=== PATIENT | female | born 1960 | race Caucasian/White ===

== ENCOUNTER 2019-09-27 15:01 | Outpatient (CLI) | payer BC, SELFPAY ==
--- NOTE | 2019-09-27 | XR_ITS ---
WS: [id number] CHEST 2 VIEWS HISTORY: BRONCHITIS COMPARISON: None available. Lungs: Clear with no abnormality. No pleural effusion or pneumothorax. Cardiac size: Normal. Mediastinum/Aorta: Normal mediastinum. Bones: Normal. XR/XR chest 2V* [id number] IMPRESSION: Normal chest.
== END 2019-09-27 15:02 | disposition home or self-care (01) ==
PROVIDERS: Family Provider Family Medicine; Visit Provider Nurse Practitioner
DX: Z01.89 Encounter for other specified special examinations (principal)

== ENCOUNTER 2021-02-18 10:27 | Outpatient (CLI) | payer OTHER, SELFPAY ==
[2021-02-18 10:53] VITALS: BP 122/72; PULSE 91; RESP 15; TEMP 36.9; O2SAT 96
[2021-02-18 11:37] VITALS: BP 102/66; PULSE 73; RESP 16; TEMP 36.7; O2SAT 96
[2021-02-18 12:37] VITALS: BP 112/72; PULSE 70; RESP 16; TEMP 36.6
== END 2021-02-18 14:11 | disposition home or self-care (01) ==
LOC: OPS 10:28
PROVIDERS: PCP Family Medicine; Visit Provider Nurse Practitioner Family
DX: U07.1 COVID-19 (principal)
CPT/HCPCS: 96365

== ENCOUNTER 2021-12-26 19:23 | Emergency (ER) | payer OTHER, SELFPAY ==
[2021-12-26 19:30] VITALS: BP 148/78; PULSE 96; O2SAT 98
[2021-12-26 19:31] VITALS: BP 164/85; PULSE 96; RESP 22; TEMP 37.4; O2SAT 97; BMI 36.6
--- NOTE | 2021-12-26 19:51 | W.ED.GENADLT ---
HPI - General Adult General: Chief complaint: General Medical Stated complaint: High BP Time Seen by Provider: 12/26/21 19:24 Source: patient Mode of arrival: ambulatory Limitations: no limitations History of Present Illness: This patient with known hypertension comes to the emergency department because she states she was concerned her blood pressure was elevated this evening. She states she has had some associated malaise body aches low back pain as well as dysuria and frequency over the last day or so as well. She is here primarily because she was concerned about her blood pressure being elevated. She has been faithful to her medications and took them this evening. She denies difficulty breathing, fevers that she is aware etc. has had some right chest soreness and has been pulling and lifting on some objects at [employer] recently. She had a prior cholecystectomy but no other abdominal surgeries. No nausea vomiting or diarrhea. No known exposure to infectious disease. Associated symptoms: Reports malaise; Deny chest pain, dyspnea, nausea, rash, palpitations or vomiting Review of Systems Const: Reports: chills, body aches and malaise; Denies: fever(s) or change in appetite Eyes: Denies: change in vision or blurry vision ENMT: Denies: throat pain, odynophagia or nasal congestion Card: Denies: chest pain, palpitations, irregular heart rhythm or edema Resp: Denies: dyspnea, productive cough or non-productive cough GI: Denies: nausea, vomiting or diarrhea : Reports: flank pain, urinary frequency and urinary urgency; Denies: difficulty voiding, dysuria or hematuria Musc: Reports: back pain; Denies: neck pain, extremity pain or extremity swelling Skin/Breast: Denies: rash Neuro: Denies: numbness in extremities or weakness in extremities Psych: Denies: anxiety or depression Reginaldo/Lymph: Denies: easy bruising or easy bleeding PFS ED PFSH: Medical History Allergies HTN (hypertension) Social History Smoking and tobacco status: current every day smoker History of recent travel: No Physical Exam Narrative: EXAM NARRATIVE: Vital signs are noted at intake. Blood pressure was in the 140/70 range. She was alert made good eye contact and speech is goal-directed. Const: COMMON NORMALS: no acute distress, average body habitus and patient oriented x3 GENERAL APPEARANCE: cooperative HENMT: COMMON NORMALS: normocephalic, Normal nasal mucous membranes and turbinates present, moist oral mucous membranes and oropharynx normal HEAD & SCALP: normocephalic NOSE: Normal nasal mucous membranes and turbinates present Eye: COMMON NORMALS: Equal, round and reactive pupils present and EOMs intact bilaterally PUPIL: Yes Equal, round and reactive pupils present Neck/C-Spine: COMMON NORMALS: full ROM, no lymphadenopathy, no JVD and No carotid bruits Chest: COMMONS NORMALS: normal inspection of the chest OTHER: Chest wall tenderness in the right side over the lateral margin of the pectoralis muscle. No crepitance, no ecchymosis no rash. Resp: COMMON NORMALS: normal respiratory effort, No use of accessory muscles and clear to auscultation bilaterally AUSCULTATION: clear to auscultation bilaterally Cardio: COMMON NORMALS: no JVD, regular rate, regular rhythm, No murmurs present (Cardio) and Peripheral pulses 2+ throughout RATE: regular rate RHYTHM: regular rhythm PERIPHERAL PULSES: Peripheral pulses 2+ throughout GI: COMMON NORMALS: Soft to palpation, non-tender and no masses PALPATION: Yes Soft to palpation : COMMON NORMALS: Yes no CVA tenderness BLADDER/KIDNEY EXAM: Yes no CVA tenderness Back/Pelvis: COMMON NORMALS: no CVA tenderness, thoracic and lumbar spine normal to inspection, no thoracic nor lumbar tenderness and thoraco-lumbar ROM normal Extremity: COMMON NORMALS: normal to inspection, full ROM, capillary refill normal, no calf tenderness and no pedal edema Neuro: COMMON NORMALS: patient oriented x3, moves all extremities, no focal motor deficits and no sensory deficits noted CRANIAL NERVES: Yes CN normal except as noted SPEECH: speech normal Course Reevaluation(s): Reevaluation #1: Patient remained stable. Her history and symptoms and urinalysis support likely urinary tract infection. This is probably a contributor to her malaise as well as her fluctuations in blood pressure. Certainly no other evidence of other emergency medical condition at this time. Discussed plan for treatment and for her to monitor her blood pressure at home with a blood pressure cuff and follow-up with her primary care doctor. She acknowledged her discussion. Time: 21:25 Vital Signs: Vital signs: Vital Signs Temperature 99.4 F 12/26/21 19:31 Pulse Rate 80 12/26/21 20:30 Respiratory Rate 22 H 12/26/21 19:31 Blood Pressure 175/70 12/26/21 20:30 Pulse Oximetry 96 12/26/21 20:30 MDM - General Adult Medical Decision Making Patient with concerns about elevated blood pressure this evening. She also had a various other somatic complaints that prompted her to come to the emergency department to include malaise, frequency urgency and dysuria. No fevers or chills nausea vomiting or diarrhea. Her evaluation today reveals blood pressures to be reasonably controlled but she did have abnormal urinalysis that suggested a urinary tract infection. She has no signs to suggest any abdominal findings and she certainly has nodes findings to suggest sepsis etc. at this time. We will treat her urinary tract infection and have her monitor her blood pressure at home. Stable for discharge. Medical Records I reviewed the patient's medical records. Lab Data I reviewed the patient's lab results. : 12/26/21 20:00 12/26/21 20:00 Laboratory Results WBC 6.0 10^3/uL (4.0-10.0) 12/26/21 20:00 RBC 4.59 10^6/uL (4.1-5.3) 12/26/21 20:00 Hgb 14.2 g/dL (11.5-15.3) 12/26/21 20:00 Hct 40.6 % (37.0-47.0) 12/26/21 20:00 MCV 88.5 fl (81-99) 12/26/21 20:00 MCH 30.9 pg (28.0-34.0) 12/26/21 20:00 MCHC 35.0 g/dL (30.0-36.0) 12/26/21 20:00 RDW 13.7 % (12.1-15.1) 12/26/21 20:00 Plt Count 265 10^3/cmm (130-400) 12/26/21 20:00 MPV 9.1 fL (7.4-10.4) 12/26/21 20:00 Neut % (Auto) 71.0 % 12/26/21 20:00 Lymph % (Auto) 20.1 % 12/26/21 20:00 [place] % (Auto) 7.5 % 06/11/22 20:00 Eos % (Auto) 0.7 % 12/26/21 20:00 Baso % (Auto) 0.5 % 12/26/21 20:00 Neut # (Auto) 4.28 10^3/uL (1.8-7.7) 12/26/21 20:00 Lymph # (Auto) 1.2 10^3/uL (0.8-4.8) 12/26/21 20:00 [place] # (Auto) 0.5 10^3/uL (0.2-0.9) 12/26/21 20:00 Eos # (Auto) 0.0 10^3/uL (0.0-0.8) 12/26/21 20:00 Baso # (Auto) 0.0 10^3/uL (0.0-0.1) 12/26/21 20:00 Nucleated RBC % (auto) 0 % 12/26/21 20:00 Nucleated RBCs # 0.0 /100WBC 12/26/21 20:00 Sodium 135 mmol/L (136-145) L 12/26/21 20:00 Potassium 3.9 mmol/L (3.5-5.1) 12/26/21 20:00 Chloride 99 mmol/L (98-107) 12/26/21 20:00 Carbon Dioxide 26 mmol/L (22-29) 12/26/21 20:00 Anion Gap 13.9 (5-19) 12/26/21 20:00 BUN 11 mg/dL (8-23) 12/26/21 20:00 Creatinine 0.6 mg/dL (0.5-0.9) 12/26/21 20:00 GFR Calculation 101.0 mL/min (90-130) 12/26/21 20:00 Glucose 108 mg/dL (65-115) 12/26/21 20:00 Calculated Osmolality 280 mOsm/kg (285-295) L 12/26/21 20:00 Calcium 9.1 mg/dL (8.5-10.5) 12/26/21 20:00 Urine Color Colorless (Yellow) 12/26/21 19:50 Urine Appearance Clear (CLEAR) 12/26/21 19:50 Urine pH 6.5 (5-7) 12/26/21 19:50 Ur Specific [place] 1.010 (1.005-1.030) 12/26/21 19:50 Urine Protein Neg (Negative) 12/26/21 19:50 Urine Glucose (UA) Norm (Normal) 12/26/21 19:50 Urine Ketones Negative (Negative) 12/26/21 19:50 Urine Blood 2+ (Negative) H 12/26/21 19:50 Urine Nitrate Negative (Negative) 12/26/21 19:50 Urine Bilirubin Neg (Negative) 12/26/21 19:50 Urine Urobilinogen Norm mg/dL (Negative) 12/26/21 19:50 Ur Leukocyte Esterase 2+ (Negative) H 12/26/21 19:50 Urine RBC 0-4 /hpf (0-2) H 12/26/21 19:50 Urine WBC 15-25 /hpf (0-5) H 12/26/21 19:50 Ur Squamous Epith Cells 15-25 /hpf (0-5) H 12/26/21 19:50 Amorphous Sediment Not Reportable 12/26/21 19:50 Urine Bacteria Trace /hpf (NONE) 12/26/21 19:50 Discharge Plan Discharge Patient Disposition: Home Clinical Impression: Hypertension, Urinary tract infection Condition: Stable Prescriptions: New Macrobid 100 mg capsule 100 mg PO BID 5 Days Qty: 10 0RF Rx Instructions: must administer with a meal/food No Action hydralazine 50 mg tablet 50 mg PO BID 0RF amlodipine 5 mg tablet 5 mg PO BID 0RF irbesartan 300 mg tablet 300 mg PO DAILY 0RF montelukast 10 mg tablet 10 mg PO DAILY 0RF cyclobenzaprine 10 mg tablet 10 mg PO TID 0RF levocetirizine [Allergy Relief (levocetirizin)] 5 mg tablet 5 mg PO DAILY 0RF Children's Flonase Sensimist 27.5 mcg/actuation spray,suspension 1 spray intranasal DAILY 0RF Rx Instructions: into each nostril latanoprost 0.005 % drops 1 drp ophthalmic (eye) DAILY 0RF triamcinolone acetonide 0.1 % ointment 1 applic topical BID Qty: 80 1RF Discharge Orders: Discharge ED (Routine); Ordered 12/26/21 Ordered By: Juanito Lovett Referrals: Johnathon Warren MD [Primary Care Provider] - 2 weeks (bp follow up) Discharge Diet: Low Salt Discharge Activity: Resume usual activity Activity Restrictions/Additional Instructions: Take the antibiotics as prescribed. Follow your blood pressure at home with your blood pressure cuff monitoring it after you have been sitting for 10 to 15 minutes once or twice daily. Record those numbers for your doctor. See your doctor in approximately 2 weeks for review of your blood pressure readings. If you develop any new or worsening symptoms return to this or the nearest emergency department. Coding Level of Care Code ED Repair Electric Motor Assembler for Rosario Fwkristi Exam Comprehensive
[2021-12-26 20:08] LABS: Basophils % 0.5 %; Eosinophils % 0.7 %; Hematocrit 40.6 % (37.0-47.0); Hemoglobin 14.2 g/dL (11.5-15.3); Lymphocytes # 1.2 10^3/uL (0.8-4.8); Lymphocytes % 20.1 %; Mean Corpuscular Hemoglobin 30.9 pg (28.0-34.0); Mean Corpuscular Volume 88.5 fl (81-99); Mean Platelet Volume 9.1 fL (7.4-10.4); Monocytes # 0.5 10^3/uL (0.2-0.9); Monocytes % 7.5 %; Neutrophils # 4.28 10^3/uL (1.8-7.7); Nucleated Red Blood Cells % 0 %; Platelet Count 265 10^3/cmm (130-400); Red Blood Count 4.59 10^6/uL (4.1-5.3); Red Cell Distribution Width 13.7 % (12.1-15.1)
[2021-12-26 20:21] LABS: Add Urine Microscopic? YES; Bilirubin Urine Neg (Negative); Blood Urine 2+ (Negative); Glucose Urine UA Norm (Normal); Ketones Urine Negative (Negative); Leukocyte Esterase Urine 2+ (Negative); Nitrate Urine Negative (Negative); Protein Urine Neg (Negative); Urine Appearance Clear (CLEAR); Urine Color Colorless (Yellow); Urobilinogen Urine Norm (Negative); pH Urine 6.5 (5-7)
[2021-12-26 20:23] LABS: Add Urine Culture? No; Bacteria Urine TRACE /hpf; RBC Urine 0-4 /hpf (0-2); Squamous Epithelial Cell Urine 15-25 /hpf (0-5); WBC Urine 15-25 /hpf (0-5)
[2021-12-26 20:28] LABS: Blood Urea Nitrogen 11 mg/dL (8-23); Calcium 9.1 mg/dL (8.5-10.5); Carbon Dioxide 26 mmol/L (22-29); Chloride 99 mmol/L (98-107); Glucose 108 mg/dL (65-115); Osmolality Calculated 280 mOsm/kg (285-295); Sodium 135 mmol/L (136-145)
[2021-12-26 20:30] VITALS: BP 175/70; PULSE 80; O2SAT 96
[2021-12-26 20:31] LABS: Anion Gap 13.9 (5-19); Potassium 3.9 mmol/L (3.5-5.1)
[2021-12-26] MEDS: nitrofurantoin SR (BID) 100 mg Capsule PO (21:30)
[2021-12-26 21:41] VITALS: BP 152/71; PULSE 80; RESP 20; TEMP 37.2; O2SAT 95
== END 2021-12-26 21:40 | disposition home or self-care (01) ==
PROVIDERS: Emergency Provider Emergency Medicine; PCP Family Medicine
DX: N39.0 Urinary tract infection, site not specified (principal); I10 Essential (primary) hypertension
CPT/HCPCS: 80048; 81001; 85025; 99283

== ENCOUNTER 2023-04-22 09:26 | Emergency (ER) | payer OTHER, SELFPAY ==
[2023-04-22 09:58] VITALS: BP 137/63; PULSE 81; RESP 16; TEMP 36.7; O2SAT 96; BMI 29.2
--- NOTE | 2023-04-22 09:58 | CT_ITS ---
WS: [id number] CT ABDOMEN PELVIS TECHNIQUE: Contrast-enhanced CT of the abdomen and pelvis with coronal and sagittal reformatted image s. CLINICAL INFORMATION: abd pain COMPARISON: None. DLP: 584.[address] scans at [facility] use at least one of these dose optimization techniques: automated e xposure control; mA and/or kV adjustment per patient size (includes targeted exams where dose is matc hed to clinical indication); or iterative reconstruction. FINDINGS: Diffuse innumerable liver metastasis throughout both hepatic lobes. Hepatomegaly. Portal vein appears patent. Large low-attenuation pancreatic tail mass measuring approximately 4.8 x 3.2 cm. This involv es the tail extending to the mid body of the pancreas. Celiac and SMA appear patent. Splenic vein is narrowed the level of the pancreatic mass and poorly visualized likely thrombosed. Trace RIGHT pleural fluid with slight atelectasis in the lung bases. Numerous small opacities in the lung bases likely metastatic disease. Mild interstitial thickening in the lung bases. Normal GE junction. Mild intrahepatic biliary ductal dilatation. Adrenal glands appear normal. Normal renal parenchymal enhancement. RIGHT renal cyst. 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 Small amount of free fl uid in the pelvis. Normal sigmoid colon. Mild sigmoid constipation. Mild transverse colon constipatio n. Normal appendix in the RIGHT lower quadrant. IMPRESSION: 1. Low-attenuation peripheral enhancing pancreatic tail mass measuring 4.8 x 3.2 cm compatible with carcinoma, likely adenocarcinoma.. 2. Diffuse innumerable liver metastasis in both hepatic lobes with hepatomegaly and mild intrahepati c bili ductal dilatation. 3. Numerous suspected subcentimeter metastasis in the lung bases. 4. Trace pleural fluid with interstitial thickening in the lung bases. 5. Small amount of free fluid in the pelvis. 6. Mild sigmoid colon and transverse colon constipation. Notified JOY Brush at 04/22/2023 11:36 AM.
[2023-04-22 10:20] VITALS: RESP 16
[2023-04-22] MEDS: metoclopramide 5 mg/mL SDV 2 mL 10 MG IVP (10:20)
[2023-04-22] MEDS: morphine 4 mg/mL SDV 1 mL IVP (10:20)
[2023-04-22] MEDS: sodium chloride 0.9% 1,000 ML 999 ML IV (10:21)
--- NOTE | 2023-04-22 10:25 | W.ED.ABDPA2 ---
HPI - Abdominal Pain General: Chief Complaint: Abdominal Pain Stated Complaint: abd pain Time Seen by Provider: 04/22/23 09:45 Source: patient and family Mode of arrival: ambulatory Limitations: no limitations History of Present Illness: Patient presents to the emergency department today with multiple complaints ranging from abdominal pain, nausea vomiting, acute on chronic issues, recent diagnosis of RA, etc. Patient reports abdominal pain since December but indicates they have become a lot worse. She states she saw her truck driver heavy a few days ago and had lab work done. She states she was notified that they were all out of whack . She indicated they had discussed sending her to rack production worker because her blood levels were so off . Patient's chart review shows that she started methotrexate about a month ago for suspected RA. She also states she was ordered an outpatient CT scan for her abdominal pain but is not able to get it done until the and states she cannot wait that long due to her pain. Patient states her pain is so bad she is not sleeping. She is also reporting decreased oral intake due to her discomfort. Patient deals with chronic constipation and had a bowel movement yesterday. No change in bowel habits per her report. Review of Systems General: Reports: 10 or more systems reviewed and unremarkable except in HPI and below PFSH ED PFSH: Medical History (Updated 04/22/23 @ 11:54 by JOY Brush) Allergies Diabetes Diverticulitis Essential hypertension High risk medication use HTN (hypertension) Immunization counseling Inflammatory arthritis Rheumatoid arthritis Surgical History (Updated 03/16/23 @ 12:10 by Gurpreet Beltre MD) History of bilateral knee replacement History of cholecystectomy History of foot surgery History of shoulder surgery Family History (Updated 03/16/23 @ 11:11 by Jessie Jeffers LPN) Other Cancer Diabetes Family history of premature coronary artery disease Hypertension Stroke Denies family history of Chronic kidney disease (CKD) Lung disease Social History Smoking and tobacco status: current every day smoker Physical Exam Const: COMMON NORMALS: patient oriented x3 and alert OTHER: Patient is obviously uncomfortable in the bed with difficulty finding positioning. She is social and answers her own history. HENMT: COMMON NORMALS: normocephalic, atraumatic, hearing grossly normal bilaterally and moist oral mucous membranes HEAD & SCALP: normocephalic and atraumatic Eye: COMMON NORMALS: Equal, round and reactive pupils present and EOMs intact bilaterally PUPIL: Yes Equal, round and reactive pupils present OTHER: Patient with bilateral scleral icterus Neck/C-Spine: COMMON NORMALS: full ROM and no JVD Lymph: LYMPHATIC: no lymphadenopathy noted Resp: COMMON NORMALS: normal respiratory effort, No retractions, No use of accessory muscles and clear to auscultation bilaterally AUSCULTATION: clear to auscultation bilaterally Cardio: COMMON NORMALS: no JVD, regular rate and regular rhythm RATE: regular rate RHYTHM: regular rhythm GI: OTHER: Profuse tenderness in the abdomen. Patient actually grabs my arm to pull me away during upper abdominal palpation. Normoactive bowel sounds. : COMMON NORMALS: Yes no CVA tenderness BLADDER/KIDNEY EXAM: Yes no CVA tenderness Back/Pelvis: COMMON NORMALS: no CVA tenderness, no thoracic nor lumbar tenderness and thoraco-lumbar ROM normal Extremity: COMMON NORMALS: normal to inspection, full ROM and capillary refill normal Neuro: COMMON NORMALS: patient oriented x3 SENSORIUM/ORIENTATION: Yes alert Psych: COMMON NORMALS: mental status grossly normal, Normal thought process present, cooperative, normal affect and activity/motor behavior normal THOUGHT PROCESS: Normal thought process present Skin: COMMON NORMALS: no rashes or lesions noted and no wounds GENERAL SKIN EXAM: no rashes or lesions noted Course Vital Signs: Vital signs: Vital Signs Temperature 98.0 F 04/22/23 09:58 Pulse Rate 81 04/22/23 09:58 Respiratory Rate 16 04/22/23 10:20 Blood Pressure 137/63 04/22/23 09:58 Pulse Oximetry 96 04/22/23 09:58 Oxygen Delivery Me thod Nasal Cannula 04/22/23 09:58 MDM - Abdominal Pain Medical Decision Making Patient does have slightly elevated white blood cell count and minimally decreased red blood cell count. MCV is 99. Patient's GFR and creatinine revealed no signs of an ADAN but total bilirubin was 7.8. AST and ALT slightly elevated with ALT at 122. Alk phos significantly elevated over 1000. UA indicated 3+ bilirubin and 4+ urobiligen. I was notified by Dr. Gtz with radiology that patient has findings of a 5 cm pancreatic tail mass with diffuse liver metastases too numerous to count. He also notes subcentimeter bilateral lower lung metastases on CT. Discussed case with Dr. Ricketts at this time. He recommended a fabian conversation with the patient regarding these findings and pushing forward a follow-up with oncology. He also was willing to write for prescription for oxycodone and Ativan in addition to promethazine for the patient. He recommended offering referral to hospice as well. I did discuss the situation with the patient. Discussed her lab work as well as associated CT reading. Explained that this condition is quite progressed at this time and while we are referring her on to all oncology, she wanted to know honestly the expected outcome. Explained that typically this progressed type of cancer does not provide much more than several months of life expectancy. Patient was appropriately tearful but still asked good questions and seemed to be processing appropriately. responded similarly. I did call the rheumatology office and left a message with the nurse regarding the patient's evaluation here in the ER as they were the one who referred her on to be further evaluated. Referral to hematology oncology as well as hospice was initiated on the patient's behalf today. Brief informational handout regarding pancreatic cancers provided at discharge for patient reference. Differential Diagnosis Likely abdominal pain; Unlikely acute appendicitis, calculus of kidney, constipation, diverticulitis, gastroenteritis, pancreatitis or small bowel obstruction Lab Data 04/22/23 10:16 04/22/23 10:16 Labs/Radiology: Laboratory Results WBC 15.03 10^3/uL (3.29-11.43) H 04/22/23 10:16 RBC 3.33 10^6/uL (3.85-5.65) L 04/22/23 10:16 Hgb 10.80 g/dL (11.27-16.99) L 04/22/23 10:16 Hct 33.0 % (36-47) L 04/22/23 10:16 MCV 99.1 fl (85-98) H 04/22/23 10:16 MCH 32.4 pg (27-33) 04/22/23 10:16 MCHC 32.7 g/dL (30-55) 04/22/23 10:16 RDW 18.1 % (12.1-15.1) H 04/22/23 10:16 Plt Count 277 10^3/cmm (157-399) 04/22/23 10:16 MPV 9.6 fL (7.4-10.4) 04/22/23 10:16 Neut % (Auto) 78.7 % 04/22/23 10:16 Lymph % (Auto) 11.1 % 04/22/23 10:16 [place] % (Auto) 6.4 % 04/22/23 10:16 Eos % (Auto) 2.2 % 04/22/23 10:16 Baso % (Auto) 0.7 % 04/22/23 10:16 Neut # (Auto) 11.82 10^3/uL (1.8-7.7) H 04/22/23 10:16 Lymph # (Auto) 1.7 10^3/uL (0.8-4.8) 04/22/23 10:16 [place] # (Auto) 1.0 10^3/uL (0.2-0.9) H 04/22/23 10:16 Eos # (Auto) 0.3 10^3/uL (0.0-0.8) 04/22/23 10:16 Baso # (Auto) 0.1 10^3/uL (0.0-0.1) 04/22/23 10:16 Nucleated RBC % (auto) 0 % 04/22/23 10:16 Nucleated RBCs # 0.0 /100WBC 04/22/23 10:16 PT 13.60 SECONDS (12.1-14.9) 04/22/23 10:16 INR 1.01 (0.8-1.2) 04/22/23 10:16 Sodium 129 mmol/L (136-145) L 04/22/23 10:16 Potassium 3.4 mmol/L (3.5-5.1) L 04/22/23 10:16 Chloride 93 mmol/L (98-107) L 04/22/23 10:16 Carbon Dioxide 23 mmol/L (22-29) 04/22/23 10:16 Anion Gap 16.4 (5-19) 04/22/23 10:16 BUN 8 mg/dL (8-23) 04/22/23 10:16 Creatinine 0.2 mg/dL (0.5-0.9) L 04/22/23 10:16 GFR Calculation 357.6 mL/min (90-130) H 04/22/23 10:16 Glucose 157 mg/dL (65-115) H 04/22/23 10:16 Calculated Osmolality 270 mOsm/kg (285-295) L 04/22/23 10:16 Calcium 8.8 mg/dL (8.5-10.5) 04/22/23 10:16 Total Bilirubin 7.8 mg/dL (0.15-1.2) H* 04/22/23 10:16 AST 138 U/L (0-32) H 04/22/23 10:16 ALT 122 U/L (0-33) H 04/22/23 10:16 Alkaline Phosphatase 1109 U/L (35-105) H* 04/22/23 10:16 Total Protein 6.1 g/dL (6.6-8.7) L 04/22/23 10:16 Albumin 3.0 g/dL (3.5-5.2) L 04/22/23 10:16 Globulin 3.1 g/dL (1.3-4.6) 04/22/23 10:16 Lipase 18 U/L (13-60) 04/22/23 10:16 Urine Color Dark yellow (Yellow) 04/22/23 10:55 Urine Appearance Hazy (CLEAR) A 04/22/23 10:55 Urine pH 6.5 (5-7) 04/22/23 10:55 Ur Specific [place] 1.010 (1.005-1.030) 04/22/23 10:55 Urine Protein 2+ (Negative) H 04/22/23 10:55 Urine Glucose (UA) Norm (Normal) 04/22/23 10:55 Urine Ketones 1+ (Negative) H 04/22/23 10:55 Urine Blood 2+ (Negative) H 04/22/23 10:55 Urine Nitrate Negative (Negative) 04/22/23 10:55 Urine Bilirubin 3+ (Negative) H 04/22/23 10:55 Urine Urobilinogen 4+ mg/dL (Negative) H 04/22/23 10:55 Ur Leukocyte Esterase 1+ (Negative) H 04/22/23 10:55 Urine RBC 0-4 /hpf (0-2) H 04/22/23 10:55 Urine WBC 0-4 /hpf (0-5) H 04/22/23 10:55 Ur Squamous Epith Cells 5-10 /hpf (0-5) H 04/22/23 10:55 Amorphous Sediment Not Reportable 04/22/23 10:55 Urine Bacteria Trace /hpf (NONE) 04/22/23 10:55 Hepatitis A IgM Ab Non-reactive (Nonreactive) 04/22/23 10:16 Hep Bs Antigen Non-reactive (Nonreactive) 04/22/23 10:16 Hep Bs Antibody 3.5 (11.5-1000) L 04/22/23 10:16 Hep B Core Total Ab Non-reactive (Nonreactive) 04/22/23 10:16 Hepatitis C Antibody Non-reactive (Nonreactive) 04/22/23 10:16 All radiology interpretation(s) finalized by discharge Discharge Plan Discharge Patient Disposition: Home Clinical Impression: Mass of pancreas, Abdominal pain, Metastases to the liver, Metastasis to lung, Pleural effusion, bilateral, Hyperbilirubinemia Condition: Stable Prescriptions: New promethazine 25 mg tablet 25 mg PO Q6H PRN (Reason: nausea and vomiting) Qty: 40 0RF No Action hydralazine 50 mg tablet 50 mg PO BID amlodipine 5 mg tablet 5 mg PO QAM irbesartan 300 mg tablet 300 mg PO QAM montelukast 10 mg tablet 10 mg PO QAM cyclobenzaprine 10 mg tablet 10 mg PO QPM PRN (Reason: Muscle Spasm) levocetirizine [Allergy Relief (levocetirizin)] 5 mg tablet 5 mg PO DAILY PRN (Reason: Allergic Symptoms) Children's Flonase Sensimist 27.5 mcg/actuation spray,suspension 1 spray intranasal DAILY Rx Instructions: into each nostril methotrexate sodium 2.5 mg tablet See Rx Instructions PO .Q7days Qty: 30 3RF Rx Instructions: take 6 tabs on same day once a week PO .Q7days; amlodipine 2.5 mg tablet 2.5 mg PO QPM atorvastatin 20 mg tablet 20 mg PO QPM dorzolamide-timolol 22.3-6.8 mg/mL drops 1 drp ophthalmic (eye) BID triamcinolone acetonide 0.1 % ointment 1 applic topical BID PRN (Reason: Rash) folic acid 1 mg tablet 1 mg PO QAM Discharge Orders: Discharge ED (Routine); Ordered 04/22/23 Ordered By: Jacquelyn Diez Referrals: Johnathon Warren MD [Primary Care Provider] - Discharge Diet: Usual diet Discharge Activity: Increase activity as tolerated Patient Instructions: Pancreatic Cancer (DC), Cancer Pain (ED), Cancer Staging and Grading Activity Restrictions/Additional Instructions: After full evaluation today, it appears that you have a mass on your pancreas which has caused metastases to your liver in your lungs. Unfortunately, it also appears that this is quite progressed at this time. We have requested an urgent follow-up with our hematology oncology group to discuss further treatment options. Until then, the emergency room physician here has requested we provide you medication to help with nausea as well as pain. I have also reached out to your truck driver heavy as they are the ones who requested you come here for an evaluation due to your lab work and left a message for the nurse requesting the doctor to look over your evaluation including lab work and imaging from your ER evaluation. Coding Level of Care Code ED Certified Real Estate Appraiser for Rosario Borjas
[2023-04-22 10:27] LABS: Basophils # 0.1 10^3/uL (0.0-0.1); Basophils % 0.7 %; Eosinophils # 0.3 10^3/uL (0.0-0.8); Eosinophils % 2.2 %; Lymphocytes # 1.7 10^3/uL (0.8-4.8); Lymphocytes % 11.1 %; Mean Corpuscular HGB Conc 32.7 g/dL (30-55); Mean Corpuscular Hemoglobin 32.4 pg (27-33); Mean Corpuscular Volume 99.1 fl (85-98); Mean Platelet Volume 9.6 fL (7.4-10.4); Monocytes % 6.4 %; Neutrophils # 11.82 10^3/uL (1.8-7.7); Neutrophils % 78.7 %; Nucleated Red Blood Cells % 0 %; Platelet Count 277 10^3/cmm (157-399); Red Blood Count 3.33 10^6/uL (3.85-5.65); Red Cell Distribution Width 18.1 % (12.1-15.1); White Blood Count 15.03 10^3/uL (3.29-11.43)
[2023-04-22 10:43] LABS: INR 1.01 (0.8-1.2)
[2023-04-22 10:47] LABS: Alanine Aminotransferase 122 U/L (0-33); Anion Gap 16.4 (5-19); Aspartate Amino Transferase 138 U/L (0-32); Blood Urea Nitrogen 8 mg/dL (8-23); Calcium 8.8 mg/dL (8.5-10.5); Carbon Dioxide 23 mmol/L (22-29); Chloride 93 mmol/L (98-107); Globulin 3.1 g/dL (1.3-4.6); Glomerular Filtration Rate 357.6 mL/min (90-130); Glucose 157 mg/dL (65-115); Lipase 18 U/L (13-60); Osmolality Calculated 270 mOsm/kg (285-295); Potassium 3.4 mmol/L (3.5-5.1); Sodium 129 mmol/L (136-145); Total Protein 6.1 g/dL (6.6-8.7)
[2023-04-22 10:53] LABS: Total Bilirubin 7.8 mg/dL (0.15-1.2)
[2023-04-22] MEDS: iohexol 350 mg/mL 500 mL Btl (per mL) IV (10:55)
[2023-04-22 11:18] LABS: Hepatitis A Antibody IgM Non-Reactive (Nonreactive); Hepatitis B Core AB, Total Non-Reactive (Nonreactive); Hepatitis B Surface AB 3.5 (11.5-1000); Hepatitis B Surface Antigen Non-Reactive (Nonreactive); Hepatitis C Virus Antibody Non-Reactive (Nonreactive)
[2023-04-22 11:27] LABS: Add Urine Microscopic? YES; Bilirubin Urine 3+ (Negative); Blood Urine 2+ (Negative); Glucose Urine UA Norm (Normal); Ketones Urine 1+ (Negative); Leukocyte Esterase Urine 1+ (Negative); Nitrate Urine Negative (Negative); Protein Urine 2+ (Negative); Urine Appearance Hazy (CLEAR); Urine Color Dark Yellow (Yellow); Urobilinogen Urine 4+ mg/dL (Negative); pH Urine 6.5 (5-7)
[2023-04-22 11:28] LABS: Bacteria Urine TRACE /hpf; RBC Urine 0-4 /hpf (0-2); WBC Urine 0-4 /hpf (0-5)
--- NOTE | 2023-04-22 15:15 | PC.SOCIAL ---
Hospice Referral Spoke with patient's over the phone who is agreeable to using [facility]. He wishes for our company to call him at the beginning of the week. Referral faxed. Called and updated Natalia via phone.
[2023-05-30 17:37] LABS: Alkaline Phosphatase 1109 U/L (35-105)
== END 2023-04-22 12:31 | disposition home or self-care (01) ==
PROVIDERS: Emergency Provider Physician Assistant; PCP Family Medicine
DX: K86.9 Disease of pancreas, unspecified (principal); C78.7 Secondary malignant neoplasm of liver and intrahepatic bile duct; C78.00 Secondary malignant neoplasm of unspecified lung; J90 Pleural effusion, not elsewhere classified; E80.6 Other disorders of bilirubin metabolism; F17.210 Nicotine dependence, cigarettes, uncomplicated; E11.9 Type 2 diabetes mellitus without complications; I10 Essential (primary) hypertension
CPT/HCPCS: 36415; 74177; 80053; 81001; 83690; 85025; 85610; 86705; 86706; 86709; 86803; 87340; 96374; 96375; 99285; J2270; J2765; J7030; Q9967

== ENCOUNTER 2023-04-28 08:54 | Oncology outpatient (recurring) (ONCR) | payer OTHER, SELFPAY ==
[2023-04-28 11:49] LABS: Alanine Aminotransferase 129 U/L (0-33); Albumin Level 2.9 g/dL (3.5-5.2); Anion Gap 15.2 (5-19); Aspartate Amino Transferase 207 U/L (0-32); Blood Urea Nitrogen 6 mg/dL (8-23); Calcium 8.4 mg/dL (8.5-10.5); Carbon Dioxide 25 mmol/L (22-29); Chloride 91 mmol/L (98-107); Globulin 2.8 g/dL (1.3-4.6); Glomerular Filtration Rate 124.2 mL/min (90-130); Glucose 153 mg/dL (65-115); Osmolality Calculated 267 mOsm/kg (285-295); Potassium 3.2 mmol/L (3.5-5.1); Sodium 128 mmol/L (136-145); Total Protein 5.7 g/dL (6.6-8.7)
[2023-04-28 11:51] LABS: Alkaline Phosphatase 1139 U/L (35-105); Total Bilirubin 14.5 mg/dL (0.15-1.2)
[2023-04-28 12:21] LABS: Bilirubin Indirect 3.69999
[2023-04-28 12:32] LABS: Cancer Antigen 19 9 > 10000 U/mL (0-35)
== END 2023-05-17 23:59 | disposition home or self-care (01) ==
PROVIDERS: PCP Family Medicine; Visit Provider Internal Medicine Medical Oncology
DX: K86.89 Other specified diseases of pancreas (principal)
CPT/HCPCS: 36415; 80053; 82247; 82248; 86301